=== PATIENT | female | born 1970 | race African-American/Black ===

== ENCOUNTER 2016-12-21 15:11 | Emergency (ER) | payer OTHER ==
--- NOTE | 2016-12-21 15:37 | PDOC ---
Rapid Medical Evaluation Chief Complaint: Back Pain Time Seen by Provider: 12/21/16 15:34 Medical Evaluation: Allergies Allergy/AdvReac Type Severity Reaction Status Date / Time azithromycin [From Zithromax] Allergy Verified 02/17/14 14:18 12/21/16 15:34 46 yo F c/o constant left flank pain x2d. Pain increased on inspiration. Pt assumed it was "gas" and took tums without relief. Denies hematuria. No h/o UTI/Nephrolithasis. Denies inj/heavy lifting LMP: 08/2012..h/o partial hysterectomy UA ordered 12/21/16 15:37
[2016-12-21 15:38] VITALS: BP 132/74; PULSE 100; TEMP 98.2; BMI 34.7
[2016-12-21] MEDS ORDERED: morphine CARPU-JECT 4 MG/1 ML DISP.SYRIN IVPUSH ONE (16:07)
--- NOTE | 2016-12-21 16:08 | PDOC ---
History of Present Illness - General History Source: Patient Exam Limitations: No Limitations - History of Present Illness Initial Comments: 12/21/16 16:08 CHIEF COMPLAINT: Left flank pain PCP: Dr. Millie Rodriguez ([facility]) HISTORY OF PRESENT ILLNESS: 46 year old female presented to the ED with severe left sided flank pain x 2 days. A/c to the patient, it started suddenly, initially thought it was due to gas, took some tums which didn't help, then took Motrin and meds for muscle spams, pain didn't go away completely. Describes the left flank pain as stabbing , 20/10 in intensity, radiating towards mid of left upper abdomen, not associated with nausea or vomiting or fever. No h/o Nephrothiasis or UTI. Increased urination but denies dysuria, urgency, hesistency or urinary incontinence. Bowel bladder habit normal. Sleep/Appetite decreased since illness. Recent Travel: None PAST MEDICAL HISTORY: H/O UTI 20 years ago. PAST SURGICAL HISTORY: Partial hysterectomy in 2011 Social History: Smoking: Denies Alcohol: Denies Drugs: Denies Family History: Allergies: NKDA 12/21/16 18:56 12/21/16 19:03 <Shirley Piedra - Last Filed: 12/21/16 19:01> <Michelle Smith - Last Filed: 12/21/16 22:02> - General Chief Complaint: Pain, Acute Stated Complaint: BACK PAIN Time Seen by Provider: 12/21/16 15:39 Past History - Past Medical History Other medical history: none - Psycho/Social/Smoking Cessation Hx Anxiety: No Suicidal Ideation: No Smoking History: Never smoked Have you smoked in the past 12 months: No Information on smoking cessation initiated: No Hx Alcohol Use: No Drug/Substance Use Hx: No Substance Use Type: None <Shirley Piedra - Last Filed: 12/21/16 19:01> <Michelle Smith - Last Filed: 12/21/16 22:02> - Past Medical History Allergies/Adverse Reactions: Allergies Allergy/AdvReac Type Severity Reaction Status Date / Time azithromycin [From Zithromax] Allergy Verified 12/21/16 15:34 Home Medications: Ambulatory Orders Ibuprofen [Motrin -] 600 mg PO TID PRN #21 tablet 12/21/16 Review of Systems - Review of Systems Able to Perform ROS?: Yes Comments:: 12/21/16 17:56 CONSTITUTIONAL: Absent: fever, chills, diaphoresis, generalized weakness, malaise, loss of appetite HEENT: Absent: rhinorrhea, nasal congestion, throat pain, throat swelling, difficulty swallowing, mouth swelling, ear pain, eye pain, visual Changes CARDIOVASCULAR: Absent: chest pain, syncope, palpitations, irregular heart rate, lightheadedness , peripheral edema RESPIRATORY: Absent: cough, shortness of breath, dyspnea with exertion, orthopnea, wheezing, stridor, hemoptysis GASTROINTESTINAL: Absent: abdominal pain, abdominal distension, nausea, vomiting, diarrhea, constipation, melena, hematochezia GENITOURINARY: Present: Left flank pain; increased urination Absent: dysuria, urgency, hesitancy, hematuria, flank pain, genital pain MUSCULOSKELETAL: Absent: myalgia, arthralgia, joint swelling SKIN: Absent: rash, itching, pallor HEMATOLOGIC/IMMUNOLOGIC: Absent: easy bleeding, easy bruising, lymphadenopathy, frequent infections ENDOCRINE: Absent: unexplained weight gain, unexplained weight loss, heat intolerance, cold intolerance NEUROLOGIC: Absent: headache, focal weakness or paresthesias, dizziness, unsteady gait, seizure, mental status changes, bladder or bowel incontinence PSYCHIATRIC: Absent: anxiety, depression, suicidal or homicidal ideation, hallucinations. Is the patient limited Occitan proficient: No <Shirley Piedra - Last Filed: 12/21/16 19:01> *Physical Exam - Vital Signs Last Vital Signs Temp Pulse Resp BP Pulse Ox 98.2 F 100 H 18 132/74 100 12/21/16 15:35 12/21/16 15:35 12/21/16 15:35 12/21/16 15:35 12/21/16 15:35 - Physical Exam Comments: 12/21/16 17:58 PE: GENERAL: Awake, alert, and fully oriented, in no acute distress HEAD: No signs of trauma EYES: PERRLA, EOMI, sclera anicteric, conjunctiva clear ENT: Auricles normal inspection, hearing grossly normal, nares patent, oropharynx clear without exudates. Moist mucosa NECK: Normal ROM, supple, no lymphadenopathy, JVD, or masses LUNGS: Breath sounds equal, clear to auscultation bilaterally. No wheezes, and no crackles.. HEART: Regular rate and rhythm, normal S1 and S2, no murmurs, rubs or gallops ABDOMEN: Left sided CVA tenderness; Soft, tenderness to palpation over the left upper quadrant+, normoactive bowel sounds. No guarding, no rebound. No masses EXTREMITIES: Normal range of motion, no edema. No clubbing or cyanosis. No cords, erythema, or tenderness NEUROLOGICAL: Cranial nerves II through XII grossly intact. Normal speech, normal gait SKIN: Warm, Dry, normal turgor, no rashes or lesions noted. <Shirley Piedra - Last Filed: 12/21/16 19:01> - Vital Signs Last Vital Signs Temp Pulse Resp BP Pulse Ox 98.2 F 100 H 18 132/74 100 12/21/16 15:35 12/21/16 15:35 12/21/16 15:35 12/21/16 15:35 12/21/16 15:35 <Michelle Smith - Last Filed: 12/21/16 22:02> ED Treatment Course - LABORATORY CBC & Chemistry Diagram: 12/21/16 16:03 12/21/16 16:00 <Shirley Piedra - Last Filed: 12/21/16 19:01> - LABORATORY CBC & Chemistry Diagram: 12/21/16 16:03 12/21/16 16:00 - ADDITIONAL ORDERS Additional order review: Laboratory Results 12/21/16 12/21/16 16:00 15:36 Sodium 139 Potassium 3.6 Chloride 103 Carbon Dioxide 29 Anion Gap 7 L BUN 6 L Creatinine 0.7 Creat Clearance w eGFR > 60 Random Glucose 90 Calcium 8.4 L Total Bilirubin 1.0 AST 12 L ALT 24 Alkaline Phosphatase 80 Total Protein 7.3 Albumin 3.6 Urine Color Ltyellow Urine Appearance Clear Urine pH 8.0 Ur Specific [place] 1.015 Urine Protein Negative Urine Glucose (UA) Negative Urine Ketones Negative Urine Blood Negative Urine Nitrite Negative Urine Bilirubin Negative Urine Urobilinogen Negative Ur Leukocyte Esterase Negative 12/21/16 16:03 RBC 4.12 MCV 87.4 MCHC 33.0 RDW 13.2 MPV 7.6 Neutrophils % 67.8 Lymphocytes % 21.2 Monocytes % 9.6 Eosinophils % 1.0 Basophils % 0.4 - Medications Given in the ED: ED Medications Discontinued Medications Generic Name Dose Route Start Last Admin Trade Name Freq PRN Reason Stop Dose Admin Diazepam 5 mg 12/21/16 21:46 12/21/16 21:53 Valium - PO 12/21/16 21:47 5 mg ONCE ONE Administration Hydromorphone HCl 0.5 mg 12/21/16 17:19 12/21/16 17:30 Dilaudid Injection - IVPB 12/21/16 17:20 0.5 mg ONCE ONE Administration Ketorolac Tromethamine 30 mg 12/21/16 18:54 12/21/16 19:05 Toradol Injection - IVPUSH 12/21/16 18:55 30 mg ONCE ONE Administration Morphine Sulfate 4 mg 12/21/16 16:07 12/21/16 16:10 Morphine Injection - IVPUSH 12/21/16 16:08 4 mg ONCE ONE Administration <Michelle Smith - Last Filed: 12/21/16 22:02> Medical Decision Making - Medical Decision Making 12/21/16 16:08 Patient seen and examined at bed side. Vitals, unremarkable. Patient is in severe flank pain and is crying Will order basic labs, CXR, Abdomen/Pelvis CT scan IV morphine 4mg 12/21/16 17:00 Patient reassessed. Still complaining of pain. Will order IV Dilaudid 0.5 mg stat IV NS 12/21/16 19:00 Abdomen/Pelvis CT- No acute pathology Chest xray PA/Lat pending 12/21/16 19:[address] Smith. Illness, Investigation and Plan of care explained to the patient. She verbalized understanding. Case seen and discussed with Dr. Smith. <Shirley Piedra - Last Filed: 12/21/16 19:01> *DC/Admit/Observation/Transfer <Shirley Piedra - Last Filed: 12/21/16 19:01> <Michelle Smith - Last Filed: 12/21/16 22:02> Diagnosis at time of Disposition: Left flank pain - Discharge Dispostion Disposition: HOME Condition at time of disposition: Stable - Prescriptions Prescriptions: Ibuprofen [Motrin -] 600 mg PO TID PRN #21 tablet PRN Reason: Back Pain - Patient Instructions Printed Discharge Instructions: DI for Flank Pain, DI for Musculoskeletal Pain Additional Instructions: -please take your medications as needed -see your primary physician if your symptoms persist -return if your symptoms worsen
[2016-12-21] MEDS ORDERED: morphine CARPU-JECT 4 MG/1 ML DISP.SYRIN ONE (16:13)
[2016-12-21 16:21] LABS: URINE APPEARANCE CLEAR; URINE BILIRUBIN NEGATIVE (NEGATIVE); URINE BLOOD NEGATIVE (NEGATIVE); URINE COLOR LTYELLOW; URINE GLUCOSE (UA) NEGATIVE (NEGATIVE); URINE KETONE NEGATIVE (NEGATIVE); URINE LEUK ESTERASE NEGATIVE (NEGATIVE); URINE NITRITE NEGATIVE (NEGATIVE); URINE PROTEIN NEGATIVE (NEGATIVE); URINE UROBILINOGEN NEGATIVE E.U./dl (0.2-1.0)
[2016-12-21 16:22] LABS: BASOPHIL 0.4 % (0-2.0); MCH 28.9 pg (25.7-33.7); MEAN CELL VOLUME 87.4 fl (80-96); MEAN PLT VOLUME 7.6 fl (7.5-11.1); NEUTROPHILS 67.8 % (42.8-82.8); PLATELET COUNT 247 K/MM3 (134-434); RDW 13.2 % (11.6-15.6); WHITE BLOOD COUNT 11.6 K/mm3 (4.0-10.0)
[2016-12-21 16:41] LABS: ALBUMIN 3.6 g/dl (3.4-5.0); ANION GAP 7 (8-16); CALCIUM 8.4 mg/dL (8.5-10.1); CO2 29 mmol/L (21-32); CREATININE 0.7 mg/dL (0.55-1.02); GLUCOSE,RANDOM 90 mg/dL (74-106); SGOT/AST 12 U/L (15-37); SGPT/ALT 24 U/L (12-78); TOT PROT 7.3 g/dl (6.4-8.2)
[2016-12-21 16:42] LABS: ALK PHOS 80 U/L (45-117)
[2016-12-21] MEDS ORDERED: HYDROmorphone HCL CARPU-JECT 1 MG/1 ML DISP.SYRIN IVPB ONE (17:19)
[2016-12-21] MEDS ORDERED: HYDROmorphone HCL CARPU-JECT 1 MG/1 ML DISP.SYRIN ONE (17:29)
[2016-12-21] MEDS ORDERED: SODIUM CHLORIDE 1,000 ML IV SCH (17:30)
[2016-12-21] MEDS ORDERED: KETOROLAC TROMETHAMINE 30 MG/1 ML VIAL IVPUSH ONE (18:54)
[2016-12-21] MEDS ORDERED: KETOROLAC TROMETHAMINE 30 MG/1 ML VIAL ONE (19:13)
[2016-12-21] MEDS ORDERED: diazePAM 5 MG TABLET PO ONE (21:46)
[2016-12-21] MEDS ORDERED: diazePAM 5 MG TABLET ONE (21:48)
== END 2016-12-21 22:26 | disposition home or self-care (01) ==
LOC: JER 15:11
PROC: 3E033NZ Introduction of Analgesics, Hypnotics, Sedatives into Peripheral Vein, Percutaneous Approach (ICD-10-PCS; principal; 2016-12-21)
PROC: 3E0333Z Introduction of Anti-inflammatory into Peripheral Vein, Percutaneous Approach (ICD-10-PCS; 2016-12-21)
DX: R10.32 Left lower quadrant pain (principal)
CPT/HCPCS: 36415; 71020-TC; 74176-TC; 80053; 81003; 85025; 99283-25

== ENCOUNTER 2018-02-12 20:24 | Emergency (ER) | payer OTHER ==
[2018-02-12 20:35] VITALS: BP 129/68; PULSE 80; TEMP 98.2; BMI 35.5
--- NOTE | 2018-02-12 21:28 | PDOC ---
History of Present Illness - General Chief Complaint: Injury Stated Complaint: PAIN IN PINKY Time Seen by Provider: 02/12/18 21:15 History Source: Patient - History of Present Illness Initial Comments: 02/12/18 21:43 Patient is a 47 year old female with a PMH of recent (02/08) rotator cuff repair who presents to our ED c/o L pinky pain and swelling. Patient notes the pain has been occuring intermittently since a workplace fall in 02/2017, however the finger became red and pain increased today prompting her visit to the ED. Patient notes a nerve block with her surgery and no pre-operative/post operative abx. Denies any fevers/chills. Past History - Past Medical History Allergies/Adverse Reactions: Allergies Allergy/AdvReac Type Severity Reaction Status Date / Time azithromycin [From Zithromax] Allergy Verified 02/12/18 20:34 Home Medications: Ambulatory Orders Cyclobenzaprine HCl [Flexeril 10 mg] 10 mg PO BID PRN #10 tablet 12/21/16 Ibuprofen [Motrin -] 600 mg PO TID PRN #21 tablet 12/21/16 Clindamycin [Cleocin -] 600 mg PO Q6H #28 capsule 02/13/18 COPD: No - Suicide/Smoking/Psychosocial Hx Smoking History: Never smoked Have you smoked in the past 12 months: No Hx Alcohol Use: No Drug/Substance Use Hx: No Substance Use Type: None Review of Systems - Review of Systems Constitutional: No: Chills, Fever Respiratory: No: Cough, Shortness of Breath Cardiac (ROS): No: Chest Pain, Lightheadedness, Palpitations, Syncope ABD/GI: No: Constipated, Diarrhea, Nausea, Vomiting : No: Burning, Dysuria *Physical Exam - Vital Signs Last Vital Signs Temp Pulse Resp BP Pulse Ox 98.2 F 80 18 129/68 100 02/12/18 20:32 02/12/18 20:32 02/12/18 20:32 02/12/18 20:32 02/12/18 20:32 - Physical Exam General Appearance: Yes: Nourished, Appropriately Dressed HEENT: positive: EOMI, Hearing Grossly Normal Neck: positive: Trachea midline, Supple Respiratory/Chest: positive: Lungs Clear, Normal Breath Sounds Cardiovascular: positive: S1, S2. negative: Edema, JVD Gastrointestinal/Abdominal: positive: Normal Bowel Sounds, Soft Musculoskeletal: negative: CVA Tenderness (R), CVA Tenderness (L) Extremity: positive: Other (L 5th phalange erythematous on volar surface; L hand edema) Integumentary: positive: Dry, Warm Neurologic: positive: Fully Oriented, Alert ED Treatment Course - LABORATORY CBC & Chemistry Diagram: 02/12/18 22:15 02/13/18 01:40 Medical Decision Making - Medical Decision Making 02/12/18 23:47 47 year old female presents with L 5th phalange erythema and edema. Will obtain Hand/Finger XR. OTD of Clindamycin. 02/13/18 00:04 X-ray shows minimal soft tissue swelling. 02/13/18 00:30 Will obtain ESR, CRP 02/13/18 00:38 Case d/w Alex Stout, patient's orthopedic surgeon - states patient has a h/o of pain out of proportion to exam. 02/13/18 02:12 ESR, CRP pending. Patient discharged home with return precautions, 7 day course of Clindamycin and instruction to f/u orthopedic surgery. *DC/Admit/Observation/Transfer Diagnosis at time of Disposition: Finger pain, left - Discharge Dispostion Disposition: HOME Condition at time of disposition: Fair Admit: No - Prescriptions Prescriptions: Clindamycin [Cleocin -] 600 mg PO Q6H #28 capsule - Referrals Referrals: Millie Laguna [Primary Care Provider] - - Patient Instructions Printed Discharge Instructions: Soft Tissue Pain (Alternative Therapy) Additional Instructions: A prescription for Clindamycin has been called to your pharmacy. Please take the entire antibiotic dose. Follow up with your orthopedic surgeon in the next 48 hours. Return to the Emergency Department for any new/worsening/concerning symptoms including fevers/redness. - Post Discharge Activity
--- NOTE | 2018-02-12 21:30 | PDOC ---
Attending Attestation - HPI HPI: The patient is a 47 year old female with a significant past medical history of rotator cuff repair (02/08/2018) who presents to the emergency department complaining of left pinky pain and swelling. The patient reports intermittent episodes of left pinky pain and swelling since a workplace fall in (02/2017), but her pinky was red and the pain increased unlike previous episodes, prompting her visit to the emergency department. Of note, the patient states she had a nerve block with her surgery and was not given any postoperative antibiotics. The patient denies chest pain, shortness of breath, headache, and dizziness. Denies fevers, chills, nausea, vomiting, diarrhea, and constipation. Allergies: NKA Past surgical history: Partial hysterectomy, Left shoulder surgery Social history: No reported cigarette, alcohol, or drug use. PCP: Dr. Laguna ([phone]) Orthopedic: Dr. Alex Stout - Physicial Exam PE: GENERAL: Awake, alert, and fully oriented, in no acute distress HEAD: No signs of trauma EYES: PERRLA, EOMI, sclera anicteric, conjunctiva clear ENT: Auricles normal inspection, hearing grossly normal, nares patent, oropharynx clear without exudates. Moist mucosa NECK: Normal ROM, supple, no lymphadenopathy, JVD, or masses LUNGS: Breath sounds equal, clear to auscultation bilaterally. No wheezes, and no crackles HEART: Regular rate and rhythm, normal S1 and S2, no murmurs, rubs or gallops ABDOMEN: Soft, nontender, normoactive bowel sounds. No guarding, no rebound. No masses EXTREMITIES: (+)Proximal interphalangeal joint erythematous and extremely tender. (+)Left hand 2nd,3rd, and 4th digit swelling. (+)Lumbrical and flexors intact, difficult to flex secondary to pain. No erythema on shoulder. No lymphangitic streaking up the left arm. Good capillary refill. Normal range of motion. No clubbing or cyanosis. No cords. NEUROLOGICAL: Cranial nerves II through XII grossly intact. Normal speech, normal gait SKIN: Warm, Dry, normal turgor, no rashes or lesions noted. - Medical Decision Making Consulted with Dr. Alex Stout at 00:34. <Naz Daniels - Last Filed: 02/13/18 00:42> - Resident Resident Name: Jacklyn Thomas - ED Attending Attestation I have performed the following: I have examined & evaluated the patient, The case was reviewed & discussed with the resident, I agree w/resident's findings & plan - Medical Decision Making 02/13/18 02:54 Pt's C-RP is elevated; chem is normal. Pt's sed rate is pending. Pt will be discharged with clindamycin for her infected finger and she will follow with her orthopedist on Wednesday. <Rachael Ayers - Last Filed: 02/13/18 02:56> Attestations - Attestations Documentation prepared by Naz Daniels, acting as medical doctor md for Rachael Ayers MD. <Naz Daniels - Last Filed: 02/13/18 00:42>
[2018-02-12] MEDS ORDERED: CLINDAMYCIN 600MG PREMIX IVPB 600 MG/50 ML BAG IVPB ONE ×2 (21:47→22:00)
[2018-02-12] MEDS ORDERED: ACETAMINOPHEN INJECTION 100 ML IVPB ONE (22:17)
[2018-02-12 22:22] LABS: BASO % 0.9 % (0-2.0); EOS % 5.6 % (0-4.5); HEMATOCRIT 36.2 % (32.4-45.2); HEMOGLOBIN 12.2 GM/dL (10.7-15.3); LYMPH % 37.4 % (8-40); MCH 29.5 pg (25.7-33.7); MCHC 33.7 g/dl (32.0-36.0); MEAN CELL VOLUME 87.5 fl (80-96); MEAN PLT VOLUME 7.5 fl (7.5-11.1); MONO % 5.2 % (3.8-10.2); NEUT % 50.9 % (42.8-82.8); PLATELET COUNT 269 K/MM3 (134-434); RBC 4.13 M/mm3 (3.60-5.2); RDW 12.8 % (11.6-15.6); WHITE BLOOD COUNT 8.5 K/mm3 (4.0-10.0)
[2018-02-13 02:29] LABS: ALBUMIN 3.5 g/dl (3.4-5.0); ALK PHOS 69 U/L (45-117); ANION GAP 8 (8-16); BILIRUBIN,TOTAL 0.3 mg/dL (0.2-1.0); BLOOD UREA NITROGEN 9 mg/dL (7-18); CALCIUM 8.7 mg/dL (8.5-10.1); CHLORIDE 107 mmol/L (98-107); CO2 25 mmol/L (21-32); CREATININE 0.6 mg/dL (0.55-1.02); GLUCOSE,RANDOM 98 mg/dL (74-106); POTASSIUM 3.8 mmol/L (3.5-5.1); SGOT/AST 17 U/L (15-37); SGPT/ALT 23 U/L (12-78); SODIUM 140 mmol/L (136-145); TOT PROT 7.1 g/dl (6.4-8.2)
== END 2018-02-13 03:35 | disposition home or self-care (01) ==
LOC: JER 20:24 → JERFT 20:24 → JER 02-13 03:35
DX: M79.645 Pain in left finger(s) (principal)
CPT/HCPCS: 36415; 73130-TC-LR-FY; 73140-TC-LT-FY; 80053; 85025; 85651; 86140; 99281-25

== ENCOUNTER 2018-03-20 10:51 | Emergency (ER) | payer OTHER ==
--- NOTE | 2018-03-20 10:57 | PDOC ---
History of Present Illness - General Chief Complaint: Cold Symptoms Stated Complaint: FLU LIKE SYMPTOMS Time Seen by Provider: 03/20/18 10:57 - History of Present Illness Initial Comments: 03/20/18 11:19 Ms. Lerner is a 47 yo female w/ no significant pmh who presents for evaluation of 3 days of nausea, headache, fever, chills, and body aches. She reports this started 03/17 and that she went to the urgent care both 03/18 and 03/19. When she went yesterday they gave her Cefdinir for outpatient treatment. She presents today as she is continuing to be symptomatic. The patient denies chest pain, shortness of breath, or dizziness. Denies vomit, diarrhea, and constipation. Denies dysuria, frequency, urgency and hematuria. Allergies: Azithromycin Past History - Past Medical History Allergies/Adverse Reactions: Allergies Allergy/AdvReac Type Severity Reaction Status Date / Time azithromycin [From Zithromax] Allergy Verified 03/20/18 11:03 Home Medications: Ambulatory Orders Benzonatate 200 mg PO TID 03/20/18 Cefdinir 300 mg PO BID 03/20/18 Fluticasone Propionate [Flovent Diskus] 50 mcg IH DAILY 03/20/18 Guaifenesin Dm [Robitussin Dm -] 10 ml PO Q4H 03/20/18 Sumatriptan Succinate [Imitrex -] 50 mg PO ASDIR 03/20/18 COPD: No - Suicide/Smoking/Psychosocial Hx Smoking History: Never smoked Have you smoked in the past 12 months: No Hx Alcohol Use: No Drug/Substance Use Hx: No Substance Use Type: None Review of Systems - Review of Systems Comments:: 03/20/18 11:38 GENERAL/CONSTITUTIONAL: +Fever/Chills intermittently over 3 days. No weakness. HEAD, EYES, EARS, NOSE AND THROAT: No change in vision. No ear pain or discharge. No sore throat. CARDIOVASCULAR: No chest pain or shortness of breath RESPIRATORY: +Significant cough with nasal congestion. No wheezing, or hemoptysis. GASTROINTESTINAL: +Mild nauea, no vomiting, diarrhea or constipation. GENITOURINARY: No dysuria, frequency, or change in urination. MUSCULOSKELETAL: +Body aches over same time period. No neck or back pain. SKIN: No rash NEUROLOGIC: +Pounding headache intermittently without vertigo, loss of consciousness, or change in strength/sensation. ENDOCRINE: No increased thirst. No abnormal weight change HEMATOLOGIC/LYMPHATIC: No anemia, easy bleeding, or history of blood clots. ALLERGIC/IMMUNOLOGIC: No hives or skin allergy. *Physical Exam - Physical Exam Comments: 03/20/18 11:39 GENERAL: Awake, alert, and fully oriented, in no acute distress HEAD: No signs of trauma, normocephalic, atraumatic EYES: PERRLA, EOMI, sclera anicteric, conjunctiva clear ENT: Auricles normal inspection, hearing grossly normal, nares patent, oropharynx clear without exudates. Moist mucosa NECK: Normal ROM, supple, no lymphadenopathy, JVD, or masses LUNGS: No distress, speaks full sentences, clear to auscultation bilaterally HEART: Regular rate and rhythm, normal S1 and S2, no murmurs, rubs or gallops, peripheral pulses normal and equal bilaterally. ABDOMEN: Soft, nontender, normoactive bowel sounds. No guarding, no rebound. No masses EXTREMITIES: Normal inspection, Normal range of motion, no edema. No clubbing or cyanosis. NEUROLOGICAL: Cranial nerves II through XII grossly intact. Normal speech, normal gait, no focal sensorimotor deficits SKIN: Warm, Dry, normal turgor, no rashes or lesions noted. ED Treatment Course - LABORATORY CBC & Chemistry Diagram: 03/20/18 11:12 03/20/18 11:12 Medical Decision Making - Medical Decision Making 03/20/18 11:39 Ms. Lerner is a 47 yo female w/ pmh as described who presents for evaluation of fever/chills with congestion, headache, and body aches. Chest x-ray ordered for evaluation along with fluids and symptomatic relief with toradol/reglan. 03/20/18 12:45 Ms. Lerner reports generalized improvement of symptoms with above regiment. Labs grossly wnl as below. Patient reports no phono or photo phobia, no neurological symptoms, exhibits no kernig's nor brudzinski's signs, no concern for neurological involvement at this time. Robitussen w/ codeine Rx given for symptomatic relief. Counseled patient at length regarding when to return and symptomatic management. CXR consistent with viral infiltrative process. Discharging to home. Patient will follow-up with PCP for further evaluation next week. Laboratory Results - last 24 hr 03/20/18 03/20/18 03/20/18 11:12 11:12 11:41 WBC 5.6 D RBC 4.34 Hgb 12.5 Hct 38.4 MCV 88.5 MCH 28.9 MCHC 32.6 RDW 13.0 Plt Count 224 MPV 7.4 L Neutrophils % 58.3 Lymphocytes % 25.3 D Monocytes % 12.6 H D Eosinophils % 2.8 Basophils % 1.0 Nucleated RBC % 0 Sodium 138 Potassium 4.1 Chloride 104 Carbon Dioxide 28 Anion Gap 6 L BUN 6 L Creatinine 0.8 Creat Clearance w eGFR > 60 Random Glucose 96 Calcium 8.3 L Total Bilirubin 0.3 AST 16 ALT 21 Alkaline Phosphatase 77 Total Protein 7.9 Albumin 3.8 Urine Color Yellow Urine Appearance Cloudy Urine pH 6.0 D Ur Specific [place] 1.021 Urine Protein Negative Urine Glucose (UA) Negative Urine Ketones Trace H Urine Blood Negative Urine Nitrite Negative Urine Bilirubin Negative Urine Urobilinogen 4.0 e.u/dl H Ur Leukocyte Esterase Negative Urine HCG, Qual Negative *DC/Admit/Observation/Transfer Diagnosis at time of Disposition: Viral upper respiratory illness - Discharge Dispostion Disposition: HOME - Referrals Referrals: Millie Laguna [Primary Care Provider] - - Patient Instructions Printed Discharge Instructions: DI for Viral Upper Respiratory Infection -- Adult Additional Instructions: Please return to ER if any increase in headache or headache not controllable with proscribed medications, fever, chills, altered mental status, or any other concerning symptoms. Follow-up with primary care provider for further evaluation. - Post Discharge Activity
[2018-03-20 11:03] VITALS: BMI 35.5
--- NOTE | 2018-03-20 11:03 | PDOC ---
Attending Attestation - HPI HPI: 03/20/18 11:59 Pt is a 47 yo F with no PMHx who presents to the ED with headache, fever and cough for the past 4 days. Patient reports productive cough (yellow phlegm) with associated congestion. Patient reports taking abx as prescribed by urgent care with no relief. Patients headache is persistent and presents to the ED for further evaluation. Strep and flu tests have been negative at urgent care. PCP: None <Annika Mayorga - Last Filed: 03/20/18 12:00> - Resident Resident Name: [email or web address] - ED Attending Attestation I have performed the following: I have examined & evaluated the patient, The case was reviewed & discussed with the resident, I agree w/resident's findings & plan, Exceptions are as noted - Physicial Exam PE: GENERAL: Awake, alert, and fully oriented, in no acute distress HEAD: No signs of trauma EYES: PERRLA, EOMI, sclera anicteric, conjunctiva clear ENT: Auricles normal inspection, hearing grossly normal, oropharynx erythematous without exudates. Moist mucosa. Nasal turbinates boggy B/L. + Purulent nasal discharge. NECK: Normal ROM, supple, no lymphadenopathy, JVD, or masses. No meningismus. LUNGS: Breath sounds equal, clear to auscultation bilaterally. No wheezes, and no crackles HEART: Regular rate and rhythm, normal S1 and S2, no murmurs, rubs or gallops ABDOMEN: Soft, nontender, normoactive bowel sounds. No guarding, no rebound. No masses EXTREMITIES: Normal range of motion, no edema. No clubbing or cyanosis. No cords, erythema, or tenderness NEUROLOGICAL: Cranial nerves II through XII grossly intact. Normal speech, normal gait. Motor and sensation intact. SKIN: Warm, Dry, normal turgor, no rashes or lesions noted. - Medical Decision Making Pt with body aches, fever, congestion, cough, headache. No signs of meningitis. Suspect viral illness, likely influenza (she tested negative in urgent care, however, the test has frequent false negatives). It has been 4 days at this point, so tamiflu is not indicated. Will give IV hydration, sent labs, give reglan/toradol. If she has symptomatic improvement, will DC home. <Heidi Smallwood - Last Filed: 03/20/18 13:06>
[2018-03-20] MEDS ORDERED: METOCLOPRAMIDE HCL INJECTION 10 MG/2 ML VIAL IVPB ONE (11:14)
[2018-03-20] MEDS ORDERED: KETOROLAC TROMETHAMINE 15 MG/ML VIAL IVPUSH ONE (11:14)
[2018-03-20] MEDS ORDERED: SODIUM CHLORIDE 1,000 ML IV STA (11:14)
[2018-03-20] MEDS ORDERED: METOCLOPRAMIDE HCL INJECTION 10 MG/2 ML VIAL ONE (11:19)
[2018-03-20] MEDS ORDERED: KETOROLAC TROMETHAMINE 15 MG/ML VIAL ONE (11:20)
[2018-03-20 11:34] LABS: EOS % 2.8 % (0-4.5); HEMATOCRIT 38.4 % (32.4-45.2); HEMOGLOBIN 12.5 GM/dL (10.7-15.3); LYMPH % 25.3 % (8-40); MCH 28.9 pg (25.7-33.7); MCHC 32.6 g/dl (32.0-36.0); MEAN CELL VOLUME 88.5 fl (80-96); MEAN PLT VOLUME 7.4 fl (7.5-11.1); MONO % 12.6 % (3.8-10.2); NEUT % 58.3 % (42.8-82.8); PLATELET COUNT 224 K/MM3 (134-434); RBC 4.34 M/mm3 (3.60-5.2); WHITE BLOOD COUNT 5.6 K/mm3 (4.0-10.0)
[2018-03-20] MEDS ORDERED: ACETAMINOPHEN 500 MG TABLET (FP) PO ONE (11:39)
[2018-03-20] MEDS ORDERED: ACETAMINOPHEN 325 MG TABLET (FP) ONE (11:42)
[2018-03-20 12:04] LABS: URINE APPEARANCE CLOUDY; URINE BILIRUBIN NEGATIVE (<2.0 mg/dL); URINE COLOR YELLOW; URINE GLUCOSE (UA) NEGATIVE (NEGATIVE); URINE KETONE TRACE (NEGATIVE); URINE LEUK ESTERASE NEGATIVE (NEGATIVE); URINE NITRITE NEGATIVE (NEGATIVE); URINE PROTEIN NEGATIVE (NEGATIVE); URINE UROBILINOGEN 4.0 E.U/dl mg/dL (0.2-1.0)
[2018-03-20 12:05] LABS: ALBUMIN 3.8 g/dl (3.4-5.0); ALK PHOS 77 U/L (45-117); ANION GAP 6 (8-16); BILIRUBIN,TOTAL 0.3 mg/dL (0.2-1.0); BLOOD UREA NITROGEN 6 mg/dL (7-18); CALCIUM 8.3 mg/dL (8.5-10.1); CHLORIDE 104 mmol/L (98-107); CO2 28 mmol/L (21-32); CREATININE 0.8 mg/dL (0.55-1.02); GLUCOSE,RANDOM 96 mg/dL (74-106); POTASSIUM 4.1 mmol/L (3.5-5.1); SGOT/AST 16 U/L (15-37); SGPT/ALT 21 U/L (12-78); SODIUM 138 mmol/L (136-145); TOT PROT 7.9 g/dl (6.4-8.2)
[2018-03-20 12:09] LABS: HCG,QUALITATIVE URINE NEGATIVE
[2018-03-20 12:52] VITALS: BP 128/81; PULSE 88; TEMP 98.9
== END 2018-03-20 12:59 | disposition home or self-care (01) ==
LOC: JER 10:51
DX: J06.9 Acute upper respiratory infection, unspecified (principal); B97.89 Other viral agents as the cause of diseases classified elsewhere
CPT/HCPCS: 36415; 71045-TC-FY; 80053; 81003; 84703; 85025; 87086; 99282-25; J7030

== ENCOUNTER 2019-11-25 13:00 | Emergency (ER) | payer OTHER ==
[2019-11-25 13:39] VITALS: BP 139/71; PULSE 83; TEMP 98; BMI 36.3
[2019-11-25] MEDS ORDERED: METHOCARBAMOL 500 MG TABLET PO ONE (14:11)
[2019-11-25] MEDS ORDERED: KETOROLAC TROMETHAMINE 30 MG/1 ML VIAL IM ONE (14:11)
[2019-11-25] MEDS ORDERED: METHOCARBAMOL 500 MG TABLET ONE (14:13)
[2019-11-25] MEDS ORDERED: KETOROLAC TROMETHAMINE 30 MG/1 ML VIAL ONE (14:14)
--- NOTE | 2019-11-25 14:18 | PDOC ---
History of Present Illness - General Stated Complaint: BACK PAIN Time Seen by Provider: 11/25/19 13:54 History Source: Patient Exam Limitations: No Limitations Past History - Past Medical History Allergies/Adverse Reactions: Allergies Allergy/AdvReac Type Severity Reaction Status Date / Time azithromycin [From Zithromax] Allergy Verified 03/20/18 11:03 Home Medications: Ambulatory Orders Benzonatate 200 mg PO TID 03/20/18 Cefdinir 300 mg PO BID 03/20/18 Fluticasone Propionate [Flovent Diskus] 50 mcg IH DAILY 03/20/18 Guaifenesin AC [Robitussin AC -] 5 ml PO QID PRN #60 ml MDD 20 mL 03/20/18 Guaifenesin Dm [Robitussin Dm -] 10 ml PO Q4H 03/20/18 Sumatriptan Succinate [Imitrex -] 50 mg PO ASDIR 03/20/18 Diclofenac Sodium [Voltaren] 2 gm TP Q6H #2 gel..gram. 11/25/19 Methocarbamol [Robaxin -] 1,500 mg PO QID #24 tablet 11/25/19 COPD: No - Psycho Social/Smoking Cessation Hx Smoking History: Never smoked Have you smoked in the past 12 months: No Hx Alcohol Use: No Drug/Substance Use Hx: No Substance Use Type: None *Physical Exam - Vital Signs Last Vital Signs Temp Pulse Resp BP Pulse Ox 98 F 83 19 139/71 98 11/25/19 13:35 11/25/19 13:35 11/25/19 13:35 11/25/19 13:35 11/25/19 13:35 - Physical Exam General Appearance: No: Apparent Distress Neck: positive: Supple. negative: Rigid Respiratory/Chest: positive: Lungs Clear, Normal Breath Sounds. negative: Respiratory Distress Cardiovascular: positive: Regular Rhythm, Regular Rate, S1, S2. negative: Murmur Musculoskeletal: positive: Muscle Spasm (Palpable muscle knot and tightness along L thoracic paraspinal muscles, no midline tenderness). negative: Vertebral Tenderness Neurologic: positive: Alert, Normal Mood/Affect, Motor Strength 5/5 Medical Decision Making - Medical Decision Making 49 y/o F hx of cervical and lumbar herniated disc s/p work accident 2 years ago presents with mid back pain x 3 weeks. Follows with pain management for chronic back pain and had MRI done 2 years ago. Last saw pain management last month. Currently on oxycodone, lyrica and flexeril but states meds not helping. Also with tingling down L arm. Went to urgent care 2 days ago and given Naprosyn which has not helped. Has tried lidocaine patch as well with no aide. Denies fever, sob, cp, abd pain, n/v, weakness of extremities. Palpable muscle spasm Could also be radiculopathy given tingling down L arm No current weakness in extremities Given Toradol, Robaxin Advised to f/u with pain management, consider repeat MRI imaging of spine 11/25/19 14:13 Discharge - Discharge Information Problems reviewed: Yes Clinical Impression/Diagnosis: Back pain Qualifiers: Back pain location: thoracic back pain Chronicity: chronic Back pain laterality : left Qualified Code(s): M54.6 - Pain in thoracic spine; G89.29 - Other chronic pain Condition: Stable Disposition: HOME - Admission No - Additional Discharge Information Prescriptions: Diclofenac Sodium [Voltaren] 2 gm TP Q6H #2 gel..gram. Methocarbamol [Robaxin -] 1,500 mg PO QID #24 tablet Prescription Drug Monitoring Program (I-STOP) results: I-STOP not reviewed - Follow up/Referral Referrals: Millie Laguna [Primary Care Provider] - 2 Days - Patient Discharge Instructions Patient Printed Discharge Instructions: DI for Thoracic Back Pain Additional Instructions: Thank you for choosing [facility]. It was a pleasure taking care of you Use Robaxin as needed for muscle spasm Do not take Flexeril with Robaxin Recommend warm soaks/heating pad and Epsom salt baths to help with back spasms Consider repeat MRI imaging of your spine Continue follow-up with your pain management doctor and primary care doctor Return to the Emergency Department if your symptoms worsen or persist or have other concerning symptoms. - Post Discharge Activity
== END 2019-11-25 14:32 | disposition home or self-care (01) ==
LOC: JERFT 13:00 → JER 13:00 → JERFT 14:32
PROC: 3E0233Z Introduction of Anti-inflammatory into Muscle, Percutaneous Approach (ICD-10-PCS; principal; 2019-11-25)
DX: M54.6 Pain in thoracic spine (principal); G89.29 Other chronic pain; M62.830 Muscle spasm of back; Z88.1 Allergy status to other antibiotic agents; Z87.828 Personal history of other (healed) physical injury and trauma; X58.XXXS Exposure to other specified factors, sequela
CPT/HCPCS: 99281-25

== ENCOUNTER 2020-08-06 10:54 | Emergency (ER) | payer OTHER ==
[2020-08-06 11:07] VITALS: BP 145/91; PULSE 80; TEMP 98.8; BMI 35.5
--- OUTSIDE RECORDS SUMMARY | 2020-08-06 11:16 | XMS ---
:1970 Author Organization [facility] Care Team Providers Name Role Phone Alex Stout MD Unavailable Unavailable Re-disclosure Warning The records that you are about to access may contain information from federally- assisted alcohol or drug abuse programs. If such information is present, then the following federally mandated warning applies: This information has been disclosed to you from records protected by federal confidentiality rules (42 CFR part 2). The federal rules prohibit you from making any further disclosure of this information unless further disclosure is expressly permitted by the written consent of the person to whom it pertains or as otherwise permitted by 42 CFR part 2. A general authorization for the release of medical or other information is NOT sufficient for this purpose. The Federal rules restrict any use of the information to criminally investigate or prosecute any alcohol or drug abuse patient.The records that you are about to access may contain highly sensitive health information, the redisclosure of which is protected by Article 27-F of the [facility] Public Health law. If you continue you may haveaccess to information: Regarding HIV / AIDS; Provided by facilities licensed or operated by the [facility] Office of Mental Health; or Provided by the [facility] Office for People With Developmental Disabilities. If such information is present, then the following [facility] mandated warning applies: This information has been disclosed to you from confidential records which are protected by state law. State law prohibits you from making any further disclosure of this information without the specific written consent of the person to whom it pertains, or as otherwise permitted by law. Any unauthorized further disclosure in violation of state law may result in a fine or fpc sentence or both. A general authorization for the release of medical or other information is NOT sufficient authorization for further disclosure. Allergies and Adverse Reactions Type Description Substance Reaction Status Data Source(s ) Food allergy avocado avocado Itching [facility] Food allergy banana banana Itching [facility] Food allergy watermelon watermelon Itching [facility] Drug allergy pollen extracts pollen extracts Sinus Congestio [facility] Miscellaneous Dust Dust Difficulty [place] allergy [place] [facility] Encounters Encounter Providers Location Date Indications Data Source(s ) U [id number] 11/15/2019 10:32:00 CAREL OGIC (Family AM EST - 11/14/2019 [facility]) 05:25:00 PM EST Patient discharged. Outpatient Attender: Alex Oh 06/23/2019 05:45:00 RIGHT KN EE Nikole Brown MD PM EDT - 06/23/2019 [facility] 03:22:00 PM EDT RIGHT KNEE [facility] Patient discharged. 06/21/2019 12:39:00 PM EDT [facility] Functional Status Medications Medication Brand Start Product Dose Route Administrative Pharmacy [facility] Indications Reaction Description Data Name Date Form Instructions Instructions Source(s) Acetaminoph Oxycod 09/25/ TABLET 2 ORAL complet [facility] en 325 MG / one/Ac 2012 {Caps ed Plain s Oxycodone etamin 07:16: ule} Hospit al Hydrochlori ophen 00 PM de 5 MG EST Oral Tablet Oxycodone/A cetaminophe n Ibuprofen 09/25/ TABLET 600 ORAL complet Whi te 2013 mg ed Adel 07:16: Hospital 00 PM EST Albuterol AEROSOL 0 RESPIR complet Wh ite Hfa Inhaler SOLUTION ATORY ed [facility]* (INHAL [facility]) Proair 90 ug RESPIR complet [facility] ATORY ed Adel (INHAL [facility]) 60 ACTUAT Salmet INHALANT 0 RESPIR complet [facility] Fluticasone christiane ATORY ed [facility] propionate Xinafo (INHAL Hospi adarsh 0.1 ate/Fl ATION) MG/ACTUAT / uticas salmeterol one 0.05 MG/ACTUAT Dry Powder Inhaler [Advair] Salmeterol Xinafoate/F luticasone Insurance Providers Payer name Policy type Policy ID Covered Covered libertarian's Policy P ashish / Coverage libertarian ID relationship to Espinoza Inf ormation type espinoza AFFINITY [id number] SP [id number] SELF PAY INSURANCE PENDING WC/NF [id number] SP [id number] ONLY [facility] [id number] SP [id number] CARE HMO/POS/EPO [employer] [id number] PT [id number] HEALTH PLAN SELECTIVE [id number] PT [id number] INSURANCE Problems, Conditions, and Diagnoses Code Display Name Description Problem Type Effective Data Sour ce(s) Dates F32.0 Major depressive Major depressive Diagnosis 11/15/2019 [place] RELOGIC disorder, single disorder, single 10:32:00 AM ( Family episode, mild episode, mild [facility] [place]) F43.10 Post-traumatic Post-traumatic Diagnosis 11/15/2019 CARELO GIC stress disorder, stress disorder, 10:32:00 AM ( Family unspecified unspecified EST [facility]) F41.1 Generalized anxiety Generalized Diagnosis 11/15/2019 [facility] disorder anxiety disorder 10:32:00 AM (Family EST [facility] [place]) Z68.37 Body mass index Z68.37 Diagnosis 06/23/2019 [facility] (BMI) 37.0-37.9, 03:21:00 PM Hospita l adult EDT E66.9 Obesity, E66.9 Diagnosis 06/23/2019 [place] unspecified 03:21:00 PM Hospital EDT K21.9 Gastro-esophageal K21.9 Diagnosis 06/23/2019 [facility] [place] reflux disease 03:21:00 PM Hospital without esophagitis EDT E78.5 Hyperlipidemia, E78.5 Diagnosis 06/23/2019 [facility] [place] unspecified 03:21:00 PM Hospital EDT Z86.73 Personal history of Z86.73 Diagnosis 06/23/2019 [place] transient ischemic 03:21:00 PM Hospi adarsh attack (TIA), and EDT cerebral infarction without residual deficits Z87.891 Personal history of Z87.891 Diagnosis 06/23/2019 [place] nicotine dependence 03:21:00 PM Hosp ital EDT R73.03 Prediabetes R73.03 Diagnosis 06/23/2019 [place] 03:21:00 PM Hospital EDT 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 06/23/2019 [place] patellae, right 03:21:00 PM Hospital knee EDT Y92.89 Other specified Y92.89 Diagnosis 06/23/2019 [facility] places as the place 03:21:00 PM Hosp ital of occurrence of EDT the external cause Y93.89 Activity, other Y93.89 Diagnosis 06/23/2019 [facility] specified 03:21:00 PM Hospital EDT X58.XXXA Exposure to other X58.XXXA Diagnosis 06/23/2019 Nikole jaramillo specified factors, 03:21:00 PM Hospi adarsh initial encounter EDT S83.271A Complex tear of S83.271A Diagnosis 06/23/2019 [facility] lateral meniscus, 03:21:00 PM Hospit al current injury, EDT right knee, initial encounter S83.241A Other tear of S83.241A Diagnosis 06/23/2019 [facility] s medial meniscus, 03:21:00 PM Hospita l current injury, EDT right knee, initial encounter Surgeries/Procedures Procedure Description Date Indications Data Source(s) Oxygen therapy 06/23/2019 [facility] (procedure) 12:00:00 AM EDT Results ID Date Data Source [id number] 05/14/2020 01:14:00 PM EDT [facility] Name Value Range Interpretation Description Data Sup porting Code Source(s) Document(s ) SARS [facility] coronavirus 2 RNA This lab was ordered by [email or web address] and reported by [email or web address]. Procedure Vital Signs ID Date Data Source UNK Name Value Range Interpretation Code Description Data Source(s) Diastolic blood 69 mm[Hg] 69 mm[Hg] [facility] Systolic blood 122 mm[Hg] 122 mm[Hg] [facility] Respiratory rate 15 /min 15 /min [facility] Heart rate 84 /min 84 /min [facility] Body temperature 36.34754 Teresita 36.31468 Teresita [facility] Body temperature 97.9 [degF] 97.9 [degF] [facility] Body mass index 37.1 kg/m2 37.1 kg/m2 [facility] ins (BMI) [Ratio] Hospital Body weight 230 [lb_av] 230 [lb_av] [facility]
[2020-08-06] MEDS ORDERED: DEXAMETHASONE SOD PHOSPHATE 4 MG/1 ML VIAL IM ONE (11:34)
[2020-08-06] MEDS ORDERED: diazePAM 5 MG TABLET PO ONE (11:34)
[2020-08-06] MEDS ORDERED: diazePAM 5 MG TABLET ONE (11:36)
[2020-08-06] MEDS ORDERED: DEXAMETHASONE SOD PHOSPHATE 4 MG/1 ML VIAL ONE (11:36)
--- NOTE | 2020-08-06 12:42 | PDOC ---
History of Present Illness - General Chief Complaint: Pain, Acute Stated Complaint: LEFT BACK/LEG PAIN Time Seen by Provider: 08/06/20 11:03 - History of Present Illness Initial Comments: 08/06/20 12:42 49 years old past medical history significant for chronic neck and back disease known herniated disks with left-sided sciatica residual left-sided numbness presents to the ED with spasm radiating pain 9 out of 10 last night left leg appeared swollen and was sent to ED for ultrasound to rule out DVT Spasm slightly better it is worse with movement no swelling noted at this time. No new weakness. No bowel or bladder incontinence. No fever no chills no weight loss. Symptoms are persistent constant worse with movement alleviated by rest. Past History - Medical History Allergies/Adverse Reactions: Allergies Allergy/AdvReac Type Severity Reaction Status Date / Time azithromycin [From Zithromax] Allergy Verified 08/06/20 10:54 Home Medications: Ambulatory Orders Butalb/Acetaminophen/Caffeine [Fioricet 50-300-40 mg Capsule] 1 each PO ASDIR 08/06/20 Oxycodone HCl [Roxicodone] 15 mg PO PRN PRN 08/06/20 Pregabalin [Lyrica -] 75 mg PO DAILY 08/06/20 COPD: No Other medical history: BACK AND NECK PAIN - Reproductive History Is Patient Now?: No - Psycho-Social/Smoking History Smoking History: Never smoked Have you smoked in the past 12 months: No - Substance Abuse Hx (Audit-C & DAST Scrn) How often the patient has a drink containing alcohol: Never Score: In Men: 4 or > Positive; In Women: 3 or > Positive: 0 Screen Result (Pos requires Nsg. Audit-10AR): Negative In the last yr the pt used illegal drug/Rx for NonMed reason: No Score: Yes response is considered Positive: 0 Screen Result (Positive result requires Nsg. DAST-10): Negative Review of Systems - Review of Systems Comments:: 08/06/20 12:43 ROS: A complete review of 10 out of 10 review of systems is taken and is negative apart from what is previously mentioned below and in the HPI. *Physical Exam - Vital Signs Last Vital Signs Temp Pulse Resp BP Pulse Ox 98.8 F 80 17 145/91 100 08/06/20 10:54 08/06/20 10:54 08/06/20 10:54 08/06/20 10:54 08/06/20 10:54 - Physical Exam 08/06/20 12:43 Vitals: Triage Vital signs reviewed General Appearance: No acute distress, well nourished well developed, Cardiac: Regular rate and rhythym, no murmurs, no rubs, no gallops, Lungs: Clear to auscultation bilateral, good air movement bilaterally, Abdomen: Soft, non distended, normal bowel sounds, non tender to palpation Extremities: Full range of motion to all extremities, no cyanosis, clubbing, or edema Skin: Warm and dry, no rashes or lesions, no rash, no petechiae Musculoskeletal: Reproducible left paraspinal lower back tenderness to palpation left buttock tenderness to palpation slight left hip tenderness to palpation Neuro: AOX3; cranial Nerves 2-12 grossly intact, strength intact to all extremities,Decreased sensation to left lower extremity (chronic) gait normal Psych: Normal mood, normal affect ED Treatment Course - RADIOLOGY Radiology Studies Ordered: Category Date Time Status HIP-LEFT [RAD] Stat Radiology 08/06/20 11:33 Completed DUPLEX VASCUL US-1 LEG [US] Stat Ultrasound 08/06/20 11:33 Taken - Medications Given in the ED: ED Medications Discontinued Medications Generic Name Dose Route Start Last Admin Trade Name Freq PRN Reason Stop Dose Admin Dexamethasone Sodium Phosphate 4 mg 08/06/20 11:34 08/06/20 11:39 Decadron Injection - IM 08/06/20 11:35 4 mg ONCE ONE Administration Diazepam 5 mg 08/06/20 11:34 08/06/20 11:39 Valium - PO 08/06/20 11:35 5 mg ONCE ONE Administration Medical Decision Making - Medical Decision Making 08/06/20 12:43 Acute on chronic exacerbation of lower back discomfort likely muscle spasm versus actual swelling given that no swelling is notable on today's examination. Will x-ray hip ultrasound lower extremity pain medication observe and reassess No acute fracture dislocation no DVT noted patient feels better after pain medication will discharge home on Medrol Dosepak with neurosurgical follow-up Findings, the need for follow-up and strict return instructions discussed with patient. Discharge - Discharge Information Problems reviewed: Yes Clinical Impression/Diagnosis: Sciatica Qualifiers: Laterality: left Qualified Code(s): M54.32 - Sciatica, left side Condition: Stable - Admission No - Follow up/Referral Referrals: Herbert Duncan MD, FAANS [Staff Physician] - - Patient Discharge Instructions Patient Printed Discharge Instructions: Sciatica Additional Instructions: Rest, home medications as prescribed. Medrol Dosepak as prescribed. Follow-up with Dr. Mosqueda this week. Return to ED for any severe worsening symptoms or for any concerns. - Post Discharge Activity
== END 2020-08-06 12:53 ==
LOC: FER 10:54
PROC: 3E023GC Introduction of Other Therapeutic Substance into Muscle, Percutaneous Approach (ICD-10-PCS; principal; 2020-08-06)
DX: M54.32 Sciatica, left side (principal)
CPT/HCPCS: 73502-TC-LT-FY; 93971-TC; 99284-25

== ENCOUNTER 2021-06-20 23:15 | Emergency (ER) | payer OTHER ==
[2021-06-21 00:42] VITALS: BMI 37.8
[2021-06-21 01:58] LABS: SARS COV-2 MOLECULAR Presumptive Positive (Negative)
[2021-06-21 02:38] LABS: BASO % 0.9 % (0-2.0); EOS % 0.1 % (0-4.5); HEMATOCRIT 35.5 % (32.4-45.2); HEMOGLOBIN 11.8 GM/dL (10.7-15.3); LYMPH % 31.2 % (8-40); MCH 28.3 pg (25.7-33.7); MCHC 33.2 g/dl (32.0-36.0); MEAN CELL VOLUME 85.4 fl (80-96); MEAN PLT VOLUME 7.7 fl (7.5-11.1); MONO % 10.8 % (3.8-10.2); PLATELET COUNT 299 10^3/uL (134-434); RBC 4.15 M/mm3 (3.60-5.2); RDW 13.4 % (11.6-15.6); WHITE BLOOD COUNT 6.5 K/mm3 (4.0-10.0)
[2021-06-21 02:39] LABS: VENOUS BASE EXCESS -0.6 mmol/L (-2-2); VENOUS O2 SATURATION 96.2 % (70-80); VENOUS PCO2 42.6 mmHg (38-52); VENOUS PH 7.379 (7.310-7.410)
[2021-06-21 02:48] LABS: INR 0.95 (0.83-1.09); PROTHROMBIN TIME (PATIENT) 11.7 SEC (9.7-13.0)
[2021-06-21 02:50] LABS: ACTIVATED PTT 27.9 SECONDS (25.2-36.5)
[2021-06-21 02:51] LABS: CHLORIDE 106 mmol/L (98-107); SODIUM 139 mmol/L (136-145)
[2021-06-21 02:54] LABS: ALBUMIN 3.8 g/dl (3.4-5.0); ANION GAP 6 MMOL/L (8-16); CALCIUM 8.4 mg/dL (8.5-10.1); CO2 26 mmol/L (21-32); GLUCOSE,RANDOM 105 mg/dL (74-106)
[2021-06-21 02:56] LABS: BILIRUBIN,DIRECT 0.1 mg/dL (0.0-0.2); CREATININE 0.6 mg/dL (0.55-1.3); SGOT/AST 15 U/L (15-37)
[2021-06-21 02:57] LABS: LDH 291 U/L (84-246)
[2021-06-21 02:59] LABS: BILIRUBIN,TOTAL 0.3 mg/dL (0.2-1)
[2021-06-21 03:00] LABS: ALK PHOS 88 U/L (45-117)
[2021-06-21 03:10] LABS: SGPT/ALT 24 U/L (13-61)
[2021-06-21 03:55] LABS: TOT PROT 7.7 g/dl (6.4-8.2)
[2021-06-21 04:42] VITALS: BP 118/64; PULSE 68; TEMP 98.4
[2021-06-22 14:07] LABS: SARS-CoV-2 NAA Detected (Not Detected)
== END 2021-06-21 04:42 | disposition home or self-care (01) ==
LOC: JER 23:15
DX: U07.1 COVID-19 (principal)
CPT/HCPCS: 36415; 71045-TC-FY; 80053; 82248; 82550; 82553; 82728; 82803; 82962; 83615; 84484; 85025; 85610; 85730; 86140; 93005; 93010; 99283-25; C9803; U0003; U0005

== ENCOUNTER 2021-06-25 08:07 | Emergency (ER) | payer OTHER ==
[2021-06-25 08:14] VITALS: BMI 37.1
[2021-06-25] MEDS ORDERED: CASIRIVIMAB/IMDEVIMAB 10 ML in SODIUM CHLORIDE 100 ML IVPB ONE (08:47)
[2021-06-25 09:26] LABS: HEMATOCRIT 38.9 % (32.4-45.2); HEMOGLOBIN 12.6 GM/dL (10.7-15.3); MCH 27.7 pg (25.7-33.7); MCHC 32.3 g/dl (32.0-36.0); MEAN CELL VOLUME 85.8 fl (80-96); MEAN PLT VOLUME 7.4 fl (7.5-11.1); PLATELET COUNT 310 10^3/uL (134-434); RBC 4.54 M/mm3 (3.60-5.2); RDW 13.1 % (11.6-15.6); WHITE BLOOD COUNT 11.1 K/mm3 (4.0-10.0)
[2021-06-25 09:56] LABS: BLOOD UREA NITROGEN 13.4 mg/dL (7-18); CALCIUM 8.9 mg/dL (8.5-10.1)
[2021-06-25 09:58] VITALS: TEMP 98.4
[2021-06-25 10:00] LABS: CREATININE 0.7 mg/dL (0.55-1.3)
[2021-06-25 11:01] VITALS: BP 106/63; PULSE 68
== END 2021-06-25 11:20 | disposition home or self-care (01) ==
LOC: JCOVINFU 08:07
DX: U07.1 COVID-19 (principal)
CPT/HCPCS: 36415; 80048; 85027; 99284-25; M0240; Q0240

== ENCOUNTER 2021-06-30 09:42 | Emergency (ER) | payer OTHER ==
[2021-06-30 10:10] VITALS: BMI 37.1
[2021-06-30] MEDS ORDERED: morphine CARPU-JECT 2 MG/1 ML DISP.SYRIN IVPUSH ONE (10:26)
[2021-06-30] MEDS ORDERED: ACETAMINOPHEN 500 MG TABLET (FP) PO ONE (10:26)
[2021-06-30] MEDS ORDERED: MORPHINE SULFATE 2 MG/ML VIAL ONE (10:52)
[2021-06-30] MEDS ORDERED: ACETAMINOPHEN 500 MG TABLET (FP) ONE (10:56)
[2021-06-30 11:22] LABS: BASO % 0.9 % (0-2.0); EOS % 2.8 % (0-4.5); HEMATOCRIT 36.2 % (32.4-45.2); HEMOGLOBIN 12.1 GM/dL (10.7-15.3); LYMPH % 40.2 % (8-40); MCH 28.6 pg (25.7-33.7); MCHC 33.3 g/dl (32.0-36.0); MEAN CELL VOLUME 85.6 fl (80-96); MEAN PLT VOLUME 7.8 fl (7.5-11.1); MONO % 6.5 % (3.8-10.2); NEUT % 49.6 % (42.8-82.8); PLATELET COUNT 294 10^3/uL (134-434); RBC 4.22 M/mm3 (3.60-5.2); RDW 12.8 % (11.6-15.6); WHITE BLOOD COUNT 7.7 K/mm3 (4.0-10.0)
[2021-06-30 11:40] LABS: CHLORIDE 106 mmol/L (98-107); SODIUM 139 mmol/L (136-145)
[2021-06-30 11:42] LABS: ALBUMIN 3.5 g/dl (3.4-5.0); CALCIUM 8.8 mg/dL (8.5-10.1)
[2021-06-30 11:43] LABS: ANION GAP 4 MMOL/L (8-16); BLOOD UREA NITROGEN 7.9 mg/dL (7-18); CO2 29 mmol/L (21-32); GLUCOSE,RANDOM 115 mg/dL (74-106)
[2021-06-30 11:45] LABS: CREATININE 0.6 mg/dL (0.55-1.3)
[2021-06-30 11:46] LABS: SGOT/AST 11 U/L (15-37); SGPT/ALT 22 U/L (13-61)
[2021-06-30 11:47] LABS: BILIRUBIN,TOTAL 0.4 mg/dL (0.2-1); TOT PROT 7.3 g/dl (6.4-8.2)
[2021-06-30 11:48] LABS: ALK PHOS 82 U/L (45-117)
[2021-06-30 12:41] LABS: LDH 163 U/L (84-246)
[2021-06-30 14:40] VITALS: BP 134/69; PULSE 80; TEMP 97.9
== END 2021-06-30 14:00 | disposition home or self-care (01) ==
LOC: JER 09:42
PROC: 3E033NZ Introduction of Analgesics, Hypnotics, Sedatives into Peripheral Vein, Percutaneous Approach (ICD-10-PCS; principal; 2021-06-30)
DX: S29.011A Strain of muscle and tendon of front wall of thorax, initial encounter (principal)
CPT/HCPCS: 36415; 71275-TC; 80053; 82550; 82728; 83615; 84484; 84703; 85025; 86140; 93005; 93010; 96374; 99285-25; Q9967

== ENCOUNTER 2022-03-23 22:32 | Emergency (ER) | payer OTHER ==
[~2022-03-23 22:32] MED LIST: LIDOCAINE PATCH REMOVAL MC SCH
[2022-03-23 22:45] VITALS: BP 136/82; PULSE 91; TEMP 98.6; BMI 45.1
[2022-03-23] MEDS ORDERED: KETOROLAC TROMETHAMINE 30 MG/1 ML VIAL IM ONE (23:35)
[2022-03-23] MEDS ORDERED: LIDOCAINE 5% TOPICAL PATCH TP ONE (23:35)
[2022-03-24] MEDS ORDERED: LIDOCAINE 5% TOPICAL PATCH ONE (00:34)
[2022-03-24] MEDS ORDERED: KETOROLAC TROMETHAMINE 30 MG/1 ML VIAL ONE (00:34)
== END 2022-03-24 01:01 | disposition home or self-care (01) ==
LOC: JER 22:32 → JERFT 22:32
PROC: 3E023GC Introduction of Other Therapeutic Substance into Muscle, Percutaneous Approach (ICD-10-PCS; principal; 2022-03-23)
DX: S00.83XA Contusion of other part of head, initial encounter (principal); S60.211A Contusion of right wrist, initial encounter; M25.511 Pain in right shoulder; Y04.0XXA Assault by unarmed brawl or fight, initial encounter
CPT/HCPCS: 73030-TC-RT-FY; 73110-TC-RT-FY; 99284-25

== ENCOUNTER 2023-01-24 15:24 | Observation (INO) | payer OTHER ==
[2023-01-24 15:29] VITALS: BMI 38.0
[2023-01-24] MEDS ORDERED: LACTATED RINGERS SOLUTION 1000 ML INFUS.BAG IV ONE (16:21)
[2023-01-24] MEDS ORDERED: morphine CARPU-JECT 4 MG/1 ML DISP.SYRIN IVPUSH ONE (16:21)
[2023-01-24] MEDS ORDERED: ONDANSETRON 4 MG/2 ML VIAL IVPUSH ONE (16:21)
[2023-01-24] MEDS ORDERED: FAMOTIDINE 20 MG/50 ML IVPB 20 MG/50 ML MG IVPB ONE ×2 (16:21→16:32)
[2023-01-24] MEDS ORDERED: KETOROLAC TROMETHAMINE 15 MG/ML VIAL IVPUSH ONE (16:21)
[2023-01-24] MEDS ORDERED: morphine SULFATE 4 MG/ML VIAL ONE (16:32)
[2023-01-24] MEDS ORDERED: KETOROLAC TROMETHAMINE 15 MG/ML VIAL ONE (16:32)
[2023-01-24] MEDS ORDERED: ONDANSETRON 4 MG/2 ML VIAL ONE (16:32)
[2023-01-24 17:28] LABS: BASO % 0.8 % (0-2.0); EOS % 1.3 % (0-4.5); HEMATOCRIT 34.2 % (32.4-45.2); HEMOGLOBIN 11.3 GM/dL (10.7-15.3); LYMPH % 28.2 % (8-40); MEAN CELL VOLUME 84.8 fl (80-96); MEAN PLT VOLUME 7.5 fl (7.5-11.1); MONO % 7.5 % (3.8-10.2); NEUT % 62.2 % (42.8-82.8); PLATELET COUNT 330 10^3/uL (134-434); RBC 4.03 M/mm3 (3.60-5.2); RDW 13.3 % (11.6-15.6); WHITE BLOOD COUNT 12.1 K/mm3 (4.0-10.0)
[2023-01-24 17:44] LABS: INR 1.16 (0.83-1.09); PROTHROMBIN TIME (PATIENT) 13.4 SEC (9.7-13.0)
[2023-01-24 17:44] LABS: EPI CELLS 17 /uL (0-25.1); HYALINE CASTS 0 /uL (0-3.1); URINE APPEARANCE CLEAR; URINE BACTERIA 454 /uL (0-1359); URINE BILIRUBIN NEGATIVE (NEGATIVE); URINE COLOR YELLOW; URINE GLUCOSE (UA) NEGATIVE (NEGATIVE); URINE KETONE NEGATIVE (NEGATIVE); URINE LEUK ESTERASE NEGATIVE (NEGATIVE); URINE NITRITE NEGATIVE (NEGATIVE); URINE PROTEIN NEGATIVE (NEGATIVE); URINE RBC 19 /uL (0-23.9); URINE UROBILINOGEN 0.2 mg/dL (0.2-1.0); URINE WBC 10 /uL (0-25.8)
[2023-01-24 17:49] LABS: CALCIUM 9.3 mg/dL (8.5-10.1)
[2023-01-24 17:50] LABS: ALBUMIN 3.8 g/dl (3.4-5.0); MAGNESIUM 2.2 mg/dL (1.8-2.4)
[2023-01-24 17:53] LABS: CREATININE 0.6 mg/dL (0.55-1.3)
[2023-01-24 17:54] LABS: TOT PROT 7.8 g/dl (6.4-8.2)
[2023-01-24 17:55] LABS: BILIRUBIN,TOTAL 0.6 mg/dL (0.2-1)
[2023-01-24] MEDS ORDERED: HYDROmorphone HCl 2 MG/ML VIAL IVPUSH ONE (19:02)
[2023-01-24] MEDS ORDERED: HYDROmorphone HCl 2 MG/ML VIAL ONE (20:01)
[2023-01-24] MEDS ORDERED: SUCRALFATE 1 GM TABLET (FP) PO ONE (20:21)
[2023-01-24] MEDS ORDERED: MAG HYDROX/AL HYDROX/SIMETH 30 ML UNIT-DOSE CUP PO ONE (20:21)
[2023-01-24] MEDS ORDERED: SUCRALFATE 1 GM TABLET (FP) ONE (21:09)
[2023-01-24] MEDS ORDERED: MAG HYDROX/AL HYDROX/SIMETH 30 ML UNIT-DOSE CUP ONE (21:09)
[2023-01-24] MEDS ORDERED: DOCUSATE SODIUM 100 MG CAPSULE (FP) PO PRN (23:21)
[2023-01-24] MEDS ORDERED: BISACODYL 5 MG TABLET.DR (FP) PO ONE (23:21)
[2023-01-24] MEDS ORDERED: ACETAMINOPHEN 1000 MG/100 ML BAG IVPB ONE (23:21)
[2023-01-25] MEDS: LACTATED RINGERS SOLUTION 1,000 ML IV SCH (01:32)
[2023-01-25] MEDS ORDERED: HYDROmorphone HCl 2 MG/ML VIAL IVPUSH PRN (01:52)
[2023-01-25] MEDS ORDERED: ONDANSETRON 4 MG/2 ML VIAL IVPUSH PRN (04:00)
[2023-01-25] MEDS ORDERED: MAG HYDROX/AL HYDROX/SIMETH 30 ML UNIT-DOSE CUP PO PRN (07:29)
[2023-01-25 07:46] LABS: HEMATOCRIT 31.7 % (32.4-45.2); HEMOGLOBIN 10.7 GM/dL (10.7-15.3); LYMPH % 34.9 % (8-40); MCH 28.8 pg (25.7-33.7); MCHC 33.8 g/dl (32.0-36.0); MEAN PLT VOLUME 7.3 fl (7.5-11.1); MONO % 8.8 % (3.8-10.2); NEUT % 53.3 % (42.8-82.8); PLATELET COUNT 302 10^3/uL (134-434); RBC 3.72 M/mm3 (3.60-5.2); RDW 12.9 % (11.6-15.6); WHITE BLOOD COUNT 8.1 K/mm3 (4.0-10.0)
[2023-01-25 08:55] LABS: CALCIUM 8.5 mg/dL (8.5-10.1)
[2023-01-25 08:56] LABS: ALBUMIN 3.4 g/dl (3.4-5.0); BLOOD UREA NITROGEN 6.4 mg/dL (7-18); MAGNESIUM 2.2 mg/dL (1.8-2.4)
[2023-01-25 08:59] LABS: CREATININE 0.6 mg/dL (0.55-1.3)
[2023-01-25 09:00] LABS: BILIRUBIN,TOTAL 0.8 mg/dL (0.2-1); TOT PROT 6.8 g/dl (6.4-8.2)
[2023-01-25] MEDS ORDERED: PANTOPRAZOLE 40 MG TABLET PO SCH (10:00)
[2023-01-25] MEDS ORDERED: BISACODYL 5 MG TABLET.DR (FP) PO SCH (10:00)
[2023-01-25] MEDS ORDERED: ENOXAPARIN NA (PORCINE) 40 MG/0.4 ML DISP.SYRIN SQ SCH (10:00)
[2023-01-25] MEDS ORDERED: HYDROmorphone HCl 2 MG/ML VIAL ONE (11:20)
[2023-01-25] MEDS ORDERED: ACETAMINOPHEN 1000 MG/100 ML BAG IVPB PRN (14:31)
[2023-01-25] MEDS: INSULIN SLIDING SCALE (NOVOLOG) 1 VIAL SQ SCH ×2 (19:06→19:09)
[2023-01-25] MEDS ORDERED: ACETAMINOPHEN INJECTION 100 ML IVPB ONE (19:51)
[2023-01-25] MEDS: PREGABALIN 75 MG CAPSULE PO SCH ×2 (22:07→22:09)
[2023-01-25] MEDS: PANTOPRAZOLE 40 MG TABLET PO SCH (22:07)
[2023-01-26] MEDS ORDERED: SENNOSIDES 8.6MG TABLET (FP) PO ONE (00:01)
[2023-01-26] MEDS ORDERED: ATORVASTATIN CA 20 MG TABLET (FP) ONE (00:01)
[2023-01-26] MEDS: SENNOSIDES 8.6MG TABLET (FP) PO SCH ×3 (00:12→21:42)
[2023-01-26] MEDS: ATORVASTATIN CA 20 MG TABLET (FP) PO SCH ×2 (00:13→21:42)
[2023-01-26] MEDS: LACTATED RINGERS SOLUTION 1,000 ML IV SCH (00:13)
[2023-01-26] MEDS: MOMETASONE FUROATE 220 MCG/IH INHALER IH SCH ×2 (00:25→21:42)
[2023-01-26 07:18] LABS: HEMOGLOBIN 10.8 GM/dL (10.7-15.3); MCH 28.5 pg (25.7-33.7); MCHC 33.8 g/dl (32.0-36.0); MEAN CELL VOLUME 84.3 fl (80-96); MEAN PLT VOLUME 7.4 fl (7.5-11.1); PLATELET COUNT 313 10^3/uL (134-434); RBC 3.79 M/mm3 (3.60-5.2); RDW 12.6 % (11.6-15.6); WHITE BLOOD COUNT 7.5 K/mm3 (4.0-10.0)
[2023-01-26] MEDS ORDERED: PREGABALIN 25 MG CAPSULE PO SCH (07:19)
[2023-01-26 07:47] LABS: CALCIUM 8.5 mg/dL (8.5-10.1)
[2023-01-26 07:48] LABS: MAGNESIUM 2.1 mg/dL (1.8-2.4)
[2023-01-26 07:51] LABS: CREATININE 0.5 mg/dL (0.55-1.3); PHOSPHOROUS 3.1 mg/dL (2.5-4.9)
[2023-01-26 09:15] VITALS: RESP 18
[2023-01-26] MEDS: INSULIN SLIDING SCALE (NOVOLOG) 1 VIAL SQ SCH ×4 (09:49→21:46)
[2023-01-26] MEDS ORDERED: PATIENT'S OWN MEDICATION (NON-FORMULARY) (Oxycodone Hcl [Roxicodone] 15 MG Tablet) PO SCH (10:00)
[2023-01-26] MEDS ORDERED: oxyCODONE HCL 5 MG TABLET PO PRN (10:00)
[2023-01-26] MEDS: PANTOPRAZOLE 40 MG TABLET PO SCH ×3 (12:35→21:47)
[2023-01-26] MEDS: POLYETHYLENE GLYCOL (HEALTHYLAX) 3350 17 GM PACKET PO SCH (12:40)
[2023-01-26] MEDS ORDERED: CYCLOBENZAPRINE HCL 5 MG TABLET PO ONE (18:27)
[2023-01-26] MEDS: LIDOCAINE 5% TOPICAL PATCH TP SCH (18:42)
[2023-01-26] MEDS ORDERED: LIDOCAINE PATCH REMOVAL MC SCH (22:00)
[2023-01-26] MEDS ORDERED: INSULIN (NOVOLOG) ASPART 100 UNITS/ML 10ML VIAL ONE (22:26)
[2023-01-27 08:53] VITALS: TEMP 97.8
[2023-01-27] MEDS: PANTOPRAZOLE 40 MG TABLET PO SCH (08:59)
[2023-01-27] MEDS: SENNOSIDES 8.6MG TABLET (FP) PO SCH (08:59)
[2023-01-27] MEDS: POLYETHYLENE GLYCOL (HEALTHYLAX) 3350 17 GM PACKET PO SCH (09:00)
[2023-01-27] MEDS: LIDOCAINE 5% TOPICAL PATCH TP SCH (09:00)
[2023-01-27 09:47] LABS: HEMATOCRIT 33.6 % (32.4-45.2); HEMOGLOBIN 11.2 GM/dL (10.7-15.3); MCH 28.4 pg (25.7-33.7); MCHC 33.5 g/dl (32.0-36.0); MEAN CELL VOLUME 84.7 fl (80-96); MEAN PLT VOLUME 7.4 fl (7.5-11.1); PLATELET COUNT 351 10^3/uL (134-434); RBC 3.96 M/mm3 (3.60-5.2); RDW 12.9 % (11.6-15.6); WHITE BLOOD COUNT 6.6 K/mm3 (4.0-10.0)
[2023-01-27] MEDS ORDERED: PREGABALIN 25 MG CAPSULE PO SCH (10:00)
[2023-01-27 10:05] LABS: CALCIUM 9.1 mg/dL (8.5-10.1)
[2023-01-27 10:06] LABS: MAGNESIUM 2.2 mg/dL (1.8-2.4)
[2023-01-27 10:08] LABS: CREATININE 0.6 mg/dL (0.55-1.3); PHOSPHOROUS 3.2 mg/dL (2.5-4.9)
[2023-01-27] MEDS ORDERED: CYCLOBENZAPRINE HCL 10 MG TABLET (FP) PO ONE (10:30)
[2023-01-27] MEDS: INSULIN SLIDING SCALE (NOVOLOG) 1 VIAL SQ SCH (10:33)
[2023-01-27 14:21] VITALS: BP 122/72; PULSE 83
[2023-01-27] MEDS ORDERED: FLUTICASONE PROP 0.05% 16 GM NASAL SPRAY NS SCH (22:00)
== END 2023-01-27 15:29 | disposition home or self-care (01) ==
LOC: JER 15:24 → JERBED 22:22 → J6S 01-26 09:00
PROVIDERS: ADMIT Internal Medicine; ATTEND Internal Medicine
PROC: 3E033NZ Introduction of Analgesics, Hypnotics, Sedatives into Peripheral Vein, Percutaneous Approach (ICD-10-PCS; principal; 2023-01-24)
PROC: 3E033GC Introduction of Other Therapeutic Substance into Peripheral Vein, Percutaneous Approach (ICD-10-PCS; 2023-01-24)
PROC: 3E033NZ Introduction of Analgesics, Hypnotics, Sedatives into Peripheral Vein, Percutaneous Approach (ICD-10-PCS; 2023-01-24)
PROC: 3E0333Z Introduction of Anti-inflammatory into Peripheral Vein, Percutaneous Approach (ICD-10-PCS; 2023-01-24)
DX: R10.31 Right lower quadrant pain (principal); R07.9 Chest pain, unspecified; K59.00 Constipation, unspecified; R77.8 Other specified abnormalities of plasma proteins; R07.89 Other chest pain; Z91.018 Allergy to other foods; Z88.8 Allergy status to other drugs, medicaments and biological substances; Z91.011 Allergy to milk products; R16.0 Hepatomegaly, not elsewhere classified; G89.29 Other chronic pain; J44.9 Chronic obstructive pulmonary disease, unspecified
CPT/HCPCS: 36415; 71275-TC; 74176-TC; 74240-TC-FY; 76700-TC; 80048; 80053; 81003; 82962; 83605; 83690; 83735; 84100; 84484; 85025; 85027; 85379; 85610; 85730; 87086; 93005; 93010; 96361; 96365; 96375; 96376; 97116-GP; 97161-GP; 99285-25; C9803-CS; G0378; Q9967; U0003; U0005

== ENCOUNTER 2023-06-09 22:00 | Emergency (ER) | payer OTHER ==
[2023-06-09 22:16] VITALS: BP 118/81; PULSE 92; RESP 16; TEMP 98.9; BMI 36.1
[2023-06-09] MEDS ORDERED: predniSONE 20 MG TABLET (UD) PO ONE (22:31)
[2023-06-09] MEDS ORDERED: predniSONE 20 MG TABLET (UD) ONE (22:33)
== END 2023-06-09 22:48 | disposition home or self-care (01) ==
LOC: FER 22:00
DX: S40.861A Insect bite (nonvenomous) of right upper arm, initial encounter (principal); S40.862A Insect bite (nonvenomous) of left upper arm, initial encounter; S80.861A Insect bite (nonvenomous), right lower leg, initial encounter; S80.862A Insect bite (nonvenomous), left lower leg, initial encounter; L29.9 Pruritus, unspecified; W57.XXXA Bitten or stung by nonvenomous insect and other nonvenomous arthropods, initial encounter
CPT/HCPCS: 99283-25

== ENCOUNTER 2023-07-07 21:16 | Emergency (ER) | payer OTHER ==
[2023-07-07 22:27] VITALS: BP 142/82; PULSE 85; RESP 18; TEMP 99.2; BMI 35.5
[2023-07-07] MEDS ORDERED: FLUCONAZOLE 150 MG TABLET PO ONE ×2 (23:34→23:39)
== END 2023-07-07 23:47 | disposition home or self-care (01) ==
LOC: FER 21:16
DX: N76.89 Other specified inflammation of vagina and vulva (principal); B37.31 Acute candidiasis of vulva and vagina
CPT/HCPCS: 87070; 87077; 87205; 99284-25

== ENCOUNTER 2024-01-04 11:24 | Emergency (ER) | payer OTHER ==
[2024-01-04 12:00] VITALS: BP 155/97; PULSE 111; RESP 19; TEMP 102; BMI 35.5
[2024-01-04] MEDS ORDERED: ACETAMINOPHEN INJECTION 100 ML IVPB ONE (12:01)
[2024-01-04] MEDS: ACETAMINOPHEN 1000 MG/100 ML BAG IVPB ONE (12:20)
[2024-01-04] MEDS: SODIUM CHLORIDE 0.9% 1000 ML INFUS.BAG IV ONE (12:20)
[2024-01-04] MEDS ORDERED: ALBUTEROL SO4 2.5/IPRATROPIUM 0.5 INH SOL 3 ML VIAL.NEB. NEB ONE (12:27)
[2024-01-04 12:31] LABS: HEMATOCRIT 36.5 % (32.4-45.2); MCH 28.6 pg (25.7-33.7); MCHC 32.9 g/dl (32.0-36.0); MEAN PLT VOLUME 7.6 fl (7.5-11.1); PLATELET COUNT 237.5 10^3/uL (134-434); RDW 13.6 % (11.6-15.6); WHITE BLOOD COUNT 5.5 10^3/uL (4.0-10.8)
[2024-01-04] MEDS: ALBUTEROL SO4 2.5/IPRATROPIUM 0.5 INH SOL 3 ML VIAL.NEB. NEB ONE (12:33)
[2024-01-04 12:48] LABS: ALBUMIN 4.4 g/dl (3.4-5.0); BILIRUBIN,TOTAL 0.7 mg/dl (0.2-1); CALCIUM 9.2 mg/dl (8.5-10.1); CREATININE 0.7 mg/dl (0.6-1.3); POTASSIUM 3.9 mmol/L (3.5-5.1); TOT PROT 7.3 g/dl (6.4-8.2)
[2024-01-04 13:38] LABS: PLATELET ESTIMATE ADEQUATE
== END 2024-01-04 14:32 | disposition home or self-care (01) ==
LOC: FER 11:24
PROC: 3E033NZ Introduction of Analgesics, Hypnotics, Sedatives into Peripheral Vein, Percutaneous Approach (ICD-10-PCS; principal; 2024-01-04)
PROC: 3E0F7GC Introduction of Other Therapeutic Substance into Respiratory Tract, Via Natural or Artificial Opening (ICD-10-PCS; 2024-01-04)
DX: J10.1 Influenza due to other identified influenza virus with other respiratory manifestations (principal); R07.0 Pain in throat; R50.9 Fever, unspecified; R53.81 Other malaise; R05.9 Cough, unspecified; R09.81 Nasal congestion; Z20.822 Contact with and (suspected) exposure to COVID-19
CPT/HCPCS: 0241U-QW; 36415; 71046-TC-FY; 80053; 85025; 87040; 87086; 87651; 93005; 94640; 96374; 99285-25; J0131

== ENCOUNTER 2024-11-15 18:28 | Emergency (ER) | payer OTHER ==
[2024-11-15 18:39] VITALS: BP 143/81; PULSE 76; RESP 16; TEMP 97.9; BMI 33.9
[2024-11-15] MEDS ORDERED: LIDOCAINE 4% PATCH TP ONE (19:32)
[2024-11-15] MEDS ORDERED: KETOROLAC TROMETHAMINE 30 MG/1 ML VIAL ONE (19:32)
[2024-11-15] MEDS: KETOROLAC TROMETHAMINE 30 MG/1 ML VIAL IM ONE (19:39)
[2024-11-15] MEDS: LIDOCAINE 5% TOPICAL PATCH TP ONE (19:40)
[2024-11-16] MEDS ORDERED: LIDOCAINE PATCH REMOVAL MC SCH (07:30)
== END 2024-11-15 20:02 | disposition home or self-care (01) ==
LOC: JERFT 18:28
PROC: 3E0233Z Introduction of Anti-inflammatory into Muscle, Percutaneous Approach (ICD-10-PCS; principal; 2024-11-15)
DX: M54.50 Low back pain, unspecified (principal)
CPT/HCPCS: 99284-25